=== PATIENT | male | born 1930 | race Caucasian/White ===

== ENCOUNTER 2017-11-13 07:12 | Inpatient (IN) | payer OTHER ==
[~2017-11-13] VITALS: Ht 167.6 cm; Wt 79.6 kg
[~2017-11-13 07:12] MED LIST: ALBUTEROL0.09 MG/A2 IH; AMLODIPINE BESYL5 M1 PO; ANTIVERT12.5 MG PO; ASPIR 8181 MG PO; ATORVASTATIN CA10 M1 PO; CLEOCIN HCL300 MG PO; CLOPIDOGREL75 M1 PO; CYCLOBENZAPRINE5 MG PO; HYDROCHLOROTHIA50 MG PO; LAC PO; LEVAQUIN500 MG PO; LEVAQUIN750 MG PO; LEVOTHYROXIN0.075 M2 PO; LEVOTHYROXIN0.088 M2 PO; LIPI20 PO; MAG PO; MELOXICAM7.5 M1 PO; METFORMIN HCL500 MG PO; TRE400 PO
[2017-11-13 07:23] VITALS: Ht 167.6 cm; Wt 79.6 kg
[2017-11-13 08:05] LABS: microscopic required? NO
[2017-11-13 08:13] LABS: BASOPHIL % 0.1 % (0-2); PLATELET COUNT 147 x10^3mcL (130-400); RED CELL DISTRIBUTION WIDTH 13.5 % (11.5-14.5)
[2017-11-13 08:13] LABS: UA SPECIFIC GRAVITY 1.015 (1.005-1.035); urine erythrocyte NEGATIVE (NEGATIVE)
[2017-11-13 08:36] LABS: CALCIUM 9.2 mg/dL (8.5-10.1); CARBON DIOXIDE 26.3 mmol/L (21-32); CHLORIDE SERUM 100 mmol/L (98-107); CREATININE SERUM 1.2 mg/dL (0.7-1.3); GLUCOSE SERUM 147 mg/dL (74-106); POTASSIUM SERUM 3.1 mmol/L (3.5-5.1); SODIUM SERUM 137 mmol/L (136-145)
[2017-11-13 08:44] LABS: CK-MB 1.3 ng/mL (0-3.6)
[2017-11-13 08:57] LABS: ALKALINE PHOSPHATASE 143 U/L (46-116); ALT/SGPT 64 U/L (16-63); AST/SGOT 53 U/L (15-37); BILIRUBIN TOTAL 1.3 mg/dL (0.20-1.00); TOTAL PROTEIN, SERUM 7.9 g/dL (6.4-8.2)
[2017-11-13] MEDS ORDERED: NOR10 PO (09:27)
[2017-11-13 10:35] LABS: MAGNESIUM 1.7 mg/dL (1.8-2.4); PHOSPHOROUS 2.7 mg/dL (2.5-4.9)
[2017-11-13 10:39] VITALS: BP 166/65
[2017-11-13 10:39] LABS: CHOLESTEROL/HDL RATIO 3.4
[2017-11-13] MEDS ORDERED: ZANTAC 150150 MG PO (11:06)
[2017-11-13 13:04] VITALS: BP 136/58
[2017-11-13 13:18] VITALS: BP 136/58
[2017-11-13 16:12] VITALS: BP 121/59
[2017-11-13 21:06] VITALS: BP 141/59
[2017-11-14 05:17] VITALS: BP 139/62
[2017-11-14 06:23] LABS: BASOPHIL % 0.1 % (0-2); RED CELL DISTRIBUTION WIDTH 13.8 % (11.5-14.5)
[2017-11-14 06:26] LABS: CALCIUM 8.6 mg/dL (8.5-10.1); CARBON DIOXIDE 25.1 mmol/L (21-32); CHLORIDE SERUM 101 mmol/L (98-107); CREATININE SERUM 1.3 mg/dL (0.7-1.3); GLUCOSE SERUM 140 mg/dL (74-106); MAGNESIUM 1.9 mg/dL (1.8-2.4); PHOSPHOROUS 2.1 mg/dL (2.5-4.9); SODIUM SERUM 137 mmol/L (136-145)
[2017-11-14 06:39] LABS: PLATELET COUNT 120 x10^3mcL (130-400)
[2017-11-14 09:08] VITALS: BP 134/62
[2017-11-14 13:38] VITALS: BP 140/59
[2017-11-14 16:48] VITALS: BP 128/64
[2017-11-14 20:43] VITALS: BP 108/50
[2017-11-15 05:45] VITALS: BP 115/65
[2017-11-15 07:00] LABS: CALCIUM 8.6 mg/dL (8.5-10.1); CARBON DIOXIDE 24.9 mmol/L (21-32); CHLORIDE SERUM 105 mmol/L (98-107); CREATININE SERUM 1.2 mg/dL (0.7-1.3); GLUCOSE SERUM 173 mg/dL (74-106); MAGNESIUM 2.2 mg/dL (1.8-2.4); PHOSPHOROUS 2.4 mg/dL (2.5-4.9); POTASSIUM SERUM 3.5 mmol/L (3.5-5.1); SODIUM SERUM 138 mmol/L (136-145)
[2017-11-15 07:31] LABS: BASOPHIL % 0.1 % (0-2); RED CELL DISTRIBUTION WIDTH 13.3 % (11.5-14.5)
[2017-11-15 07:45] LABS: PLATELET COUNT 127 x10^3mcL (130-400)
[2017-11-15 08:18] VITALS: BP 118/59
[2017-11-15 12:01] VITALS: BP 115/56
[2017-11-15 17:33] VITALS: BP 127/65
[2017-11-15 20:35] VITALS: BP 113/49
[2017-11-16] VITALS (7 sets, daily range): BP systolic 113–147; BP diastolic 50–73
[2017-11-16 07:11] LABS: BASOPHIL % 0 % (0-2); PLATELET COUNT 143 x10^3mcL (130-400); RED CELL DISTRIBUTION WIDTH 13.9 % (11.5-14.5)
[2017-11-16 07:13] LABS: CALCIUM 8.6 mg/dL (8.5-10.1); CARBON DIOXIDE 22.4 mmol/L (21-32); CHLORIDE SERUM 107 mmol/L (98-107); CREATININE SERUM 1.1 mg/dL (0.7-1.3); GLUCOSE SERUM 114 mg/dL (74-106); MAGNESIUM 2.1 mg/dL (1.8-2.4); PHOSPHOROUS 2.7 mg/dL (2.5-4.9); POTASSIUM SERUM 3.7 mmol/L (3.5-5.1); SODIUM SERUM 140 mmol/L (136-145)
[2017-11-17 05:24] VITALS: BP 142/66
[2017-11-17 07:30] LABS: PLATELET COUNT 139 x10^3mcL (130-400); RED CELL DISTRIBUTION WIDTH 13.1 % (11.5-14.5)
[2017-11-17 08:02] LABS: CALCIUM 8.4 mg/dL (8.5-10.1); CARBON DIOXIDE 24.7 mmol/L (21-32); CHLORIDE SERUM 107 mmol/L (98-107); CREATININE SERUM 1.1 mg/dL (0.7-1.3); GLUCOSE SERUM 93 mg/dL (74-106); MAGNESIUM 1.8 mg/dL (1.8-2.4); PHOSPHOROUS 2.7 mg/dL (2.5-4.9); POTASSIUM SERUM 3.9 mmol/L (3.5-5.1); SODIUM SERUM 141 mmol/L (136-145)
[2017-11-17 09:39] VITALS: BP 117/55
[2017-11-17 13:31] VITALS: BP 135/58
[2017-11-17 14:20] VITALS: BP 106/67
[2017-11-17 16:45] VITALS: BP 124/54
[2017-11-17] MEDS ORDERED: GENTAMICIN80 MG/101 IV (17:49)
[2017-11-17] MEDS ORDERED: [UNRECOGNIZED DRUG - OTHER] IV (17:50)
[2017-11-17 18:08] VITALS: BP 124/54
== END 2017-11-17 19:55 | DRG 871 ==
LOC: ED 07:12 → DU 09:41 → MU 11-17 17:43
PROVIDERS: Emergency Medicine; Family Medicine; ADMIT Family Medicine
DX: R78.81 Bacteremia (principal); N17.0 Acute kidney failure with tubular necrosis; D68.69 Other thrombophilia; J44.1 Chronic obstructive pulmonary disease with (acute) exacerbation; E87.6 Hypokalemia; B95.2 Enterococcus as the cause of diseases classified elsewhere; E11.65 Type 2 diabetes mellitus with hyperglycemia; E83.39 Other disorders of phosphorus metabolism; E83.42 Hypomagnesemia; R74.0 Nonspecific elevation of levels of transaminase and lactic acid dehydrogenase [LDH]; M19.90 Unspecified osteoarthritis, unspecified site; I25.10 Atherosclerotic heart disease of native coronary artery without angina pectoris; Z95.0 Presence of cardiac pacemaker; Z68.26 Body mass index [BMI] 26.0-26.9, adult; Z87.891 Personal history of nicotine dependence; Z85.51 Personal history of malignant neoplasm of bladder; Z95.5 Presence of coronary angioplasty implant and graft
CPT/HCPCS: 36600; 82962; 83880; 87804; 94150; 97110-GP; 97116-GP; 97530-GP; J0290; J1580; J2543; J2920; J3370; J3475; J3480; J7030; J7620; Q0092

== ENCOUNTER → 2018-05-12 | Outpatient (CLI) | payer OTHER ==
[~2018-05-12] MED LIST changes: +GENTAMICIN80 MG/101 IV; +NOR10 PO; +ZANTAC 150150 MG PO; +[UNRECOGNIZED DRUG - OTHER] IV
== END | disposition home or self-care (01) ==
LOC: RD 15:21
DX: R06.02 Shortness of breath (principal); Z95.0 Presence of cardiac pacemaker

== ENCOUNTER 2018-05-14 13:41 | Emergency (ER) | payer OTHER ==
[~2018-05-14] VITALS: Ht 167.6 cm; Wt 75.7 kg
[2018-05-14 13:47] VITALS: Ht 167.6 cm; Wt 75.7 kg
[2018-05-14 14:12] VITALS: BP 150/72
== END 2018-05-14 14:36 | disposition home or self-care (01) ==
LOC: ED 13:41
DX: I10 Essential (primary) hypertension (principal); E11.9 Type 2 diabetes mellitus without complications; E78.00 Pure hypercholesterolemia, unspecified; E03.9 Hypothyroidism, unspecified

== ENCOUNTER 2018-06-20 20:57 | Emergency (ER) | payer OTHER ==
[~2018-06-20] VITALS: Ht 172.7 cm; Wt 80.3 kg
[2018-06-20 21:03] VITALS: Ht 172.7 cm; Wt 80.3 kg
[2018-06-21 00:51] VITALS: BP 141/74
== END 2018-06-21 00:51 | disposition home or self-care (01) ==
LOC: ED 20:57
DX: S33.5XXA Sprain of ligaments of lumbar spine, initial encounter (principal); I10 Essential (primary) hypertension; E11.9 Type 2 diabetes mellitus without complications; Z85.51 Personal history of malignant neoplasm of bladder; E78.00 Pure hypercholesterolemia, unspecified; Z95.0 Presence of cardiac pacemaker; W01.10XA Fall on same level from slipping, tripping and stumbling with subsequent striking against unspecified object, initial encounter; Y93.89 Activity, other specified; Y92.89 Other specified places as the place of occurrence of the external cause; Y99.8 Other external cause status

== ENCOUNTER 2018-06-30 11:42 | Emergency (ER) | payer OTHER ==
[~2018-06-30] VITALS: Ht 165.1 cm; Wt 75.4 kg
[2018-06-30 12:36] LABS: BASOPHIL % 0.9 % (0-2)
[2018-06-30 12:45] LABS: PLATELET COUNT 165 x10^3mcL (130-400); RED CELL DISTRIBUTION WIDTH 24.1 % (11.5-14.5)
[2018-06-30 12:48] LABS: CALCIUM 8.2 mg/dL (8.5-10.1); CARBON DIOXIDE 25.9 mmol/L (21-32); CHLORIDE SERUM 107 mmol/L (98-107); CREATININE SERUM 1.2 mg/dL (0.7-1.3); GLUCOSE SERUM 119 mg/dL (74-106); POTASSIUM SERUM 4.2 mmol/L (3.5-5.1); SODIUM SERUM 141 mmol/L (136-145)
[2018-06-30 12:54] LABS: ALBUMIN 3.7 g/dL (3.4-5.0); ALKALINE PHOSPHATASE 140 U/L (46-116); ALT/SGPT 24 U/L (16-63); AST/SGOT 21 U/L (15-37); BILIRUBIN TOTAL 0.5 mg/dL (0.20-1.00); CHOLESTEROL 97 mg/dL (<200); HDL CHOLESTEROL 32 mg/dL (40-60)
[2018-06-30 14:51] VITALS: BP 137/70
[2018-07-01] MEDS ORDERED: NOR5 PO (18:56)
[2018-07-01] MEDS ORDERED: METFORMIN HYDR500 M1 PO (18:57)
[2018-07-01] MEDS ORDERED: PEPCID20 MG PO (18:57)
== END 2018-06-30 14:51 | disposition home or self-care (01) ==
LOC: ED 11:42
PROVIDERS: Emergency Medicine
DX: E86.0 Dehydration (principal); R55 Syncope and collapse; I10 Essential (primary) hypertension; E11.9 Type 2 diabetes mellitus without complications; E78.00 Pure hypercholesterolemia, unspecified
CPT/HCPCS: 83880; J7040; Q0092

== ENCOUNTER 2018-07-01 14:35 | Inpatient (IN) | payer OTHER ==
[~2018-07-01] VITALS: Ht 167.6 cm; Wt 71.9 kg
[2018-07-01 14:36] VITALS: Ht 167.6 cm; Wt 71.9 kg
[2018-07-01 16:35] LABS: CARBON DIOXIDE 27.5 mmol/L (21-32); CHLORIDE SERUM 103 mmol/L (98-107); CREATININE SERUM 1.1 mg/dL (0.7-1.3); GLUCOSE SERUM 129 mg/dL (74-106); POTASSIUM SERUM 3.5 mmol/L (3.5-5.1); SODIUM SERUM 136 mmol/L (136-145)
[2018-07-01 16:47] LABS: PLATELET COUNT 161 x10^3mcL (130-400)
[2018-07-01 16:48] LABS: LIPASE 176 IU/L (73-393); MAGNESIUM 1.7 mg/dL (1.8-2.4)
[2018-07-01 16:51] LABS: AMYLASE 159 U/L (25-115)
[2018-07-01 16:52] LABS: microscopic required? NO
[2018-07-01 17:07] LABS: RED CELL DISTRIBUTION WIDTH 26.2 % (11.5-14.5)
[2018-07-01 17:10] LABS: UA SPECIFIC GRAVITY <=1.005 (1.005-1.035); urine erythrocyte NEGATIVE (NEGATIVE)
[2018-07-01 17:22] LABS: SEGMENTED NEUTROPHILS 65 % (37-75)
[2018-07-01 17:23] LABS: BAND NEUTROPHIL 3 % (0-10); MONOCYTE 9 % (0-7); rbc morphology (normal/abnorm) ABNORMAL (NORMAL)
[2018-07-01 17:24] LABS: PLATELET MORPHOLOGY PLATELETS NORMAL; ovalocyte/elliptocyte 1+
[2018-07-01] MEDS ORDERED: NOR5 PO (18:56)
[2018-07-01] MEDS ORDERED: METFORMIN HYDR500 M1 PO (18:57)
[2018-07-01] MEDS ORDERED: PEPCID20 MG PO (18:57)
[2018-07-01 20:27] VITALS: BP 174/77
[2018-07-02 05:43] VITALS: BP 126/65
[2018-07-02 06:47] LABS: BASOPHIL % 0.9 % (0-2); PLATELET COUNT 158 x10^3mcL (130-400)
[2018-07-02 07:09] LABS: RED CELL DISTRIBUTION WIDTH 26.4 % (11.5-14.5)
[2018-07-02 07:10] LABS: rbc morphology (normal/abnorm) ABNORMAL (NORMAL)
[2018-07-02 08:33] LABS: CALCIUM 8.8 mg/dL (8.5-10.1); CARBON DIOXIDE 23.6 mmol/L (21-32); CHLORIDE SERUM 105 mmol/L (98-107); GLUCOSE SERUM 94 mg/dL (74-106); LACTIC DEHYDROGENASE (LDH) 207 U/L (100-190); MAGNESIUM 1.7 mg/dL (1.8-2.4); PHOSPHOROUS 2.9 mg/dL (2.5-4.9); POTASSIUM SERUM 3.6 mmol/L (3.5-5.1); SODIUM SERUM 132 mmol/L (136-145)
[2018-07-02 09:01] VITALS: BP 147/60
[2018-07-02 13:21] VITALS: BP 130/61
[2018-07-02 17:58] VITALS: BP 148/68
[2018-07-02 20:32] VITALS: BP 140/60
[2018-07-03] VITALS (7 sets, daily range): BP systolic 109–174; BP diastolic 58–72
[2018-07-03 07:10] LABS: CALCIUM 9.1 mg/dL (8.5-10.1); CARBON DIOXIDE 25.3 mmol/L (21-32); CHLORIDE SERUM 106 mmol/L (98-107); GLUCOSE SERUM 99 mg/dL (74-106); MAGNESIUM 1.9 mg/dL (1.8-2.4); PHOSPHOROUS 3.3 mg/dL (2.5-4.9); POTASSIUM SERUM 3.6 mmol/L (3.5-5.1); SODIUM SERUM 140 mmol/L (136-145)
[2018-07-03 07:22] LABS: BASOPHIL % 0.9 % (0-2); PLATELET COUNT 177 x10^3mcL (130-400)
[2018-07-03 07:26] LABS: RED CELL DISTRIBUTION WIDTH 26.2 % (11.5-14.5)
[2018-07-03 07:41] LABS: rbc morphology (normal/abnorm) ABNORMAL (NORMAL)
[2018-07-04 05:45] VITALS: BP 148/65
[2018-07-04 06:37] LABS: BASOPHIL % 0.6 % (0-2); PLATELET COUNT 170 x10^3mcL (130-400)
[2018-07-04 06:47] LABS: CARBON DIOXIDE 25.1 mmol/L (21-32); CHLORIDE SERUM 107 mmol/L (98-107); CREATININE SERUM 1.1 mg/dL (0.7-1.3); GLUCOSE SERUM 106 mg/dL (74-106); MAGNESIUM 1.9 mg/dL (1.8-2.4); PHOSPHOROUS 3.4 mg/dL (2.5-4.9); POTASSIUM SERUM 3.8 mmol/L (3.5-5.1); SODIUM SERUM 142 mmol/L (136-145)
[2018-07-04 06:48] LABS: RED CELL DISTRIBUTION WIDTH 26.2 % (11.5-14.5)
[2018-07-04 07:19] LABS: rbc morphology (normal/abnorm) ABNORMAL (NORMAL)
[2018-07-04 07:20] LABS: ovalocyte/elliptocyte 1+
[2018-07-04 09:12] VITALS: BP 134/54
[2018-07-04 12:56] VITALS: BP 150/66
[2018-07-04] MEDS ORDERED: LIPI20 PO (14:24)
[2018-07-04] MEDS ORDERED: NOR5 PO (14:26)
[2018-07-04] MEDS ORDERED: CLOPIDOGREL75 M1 PO (14:28)
[2018-07-04] MEDS ORDERED: HYD25 PO (14:33)
[2018-07-04 14:34] VITALS: BP 150/66
== END 2018-07-04 17:15 | disposition home or self-care (01) | DRG 73 ==
LOC: ED 14:35 → DU 18:02
PROVIDERS: Emergency Medicine; Family Medicine
DX: G90.8 Other disorders of autonomic nervous system (principal); K85.90 Acute pancreatitis without necrosis or infection, unspecified; D68.69 Other thrombophilia; E11.65 Type 2 diabetes mellitus with hyperglycemia; E11.51 Type 2 diabetes mellitus with diabetic peripheral angiopathy without gangrene; I10 Essential (primary) hypertension; I25.10 Atherosclerotic heart disease of native coronary artery without angina pectoris; E03.9 Hypothyroidism, unspecified; R42 Dizziness and giddiness; D64.9 Anemia, unspecified; Z95.0 Presence of cardiac pacemaker; Z68.29 Body mass index [BMI] 29.0-29.9, adult; Z87.891 Personal history of nicotine dependence; Z85.51 Personal history of malignant neoplasm of bladder; Z79.84 Long term (current) use of oral hypoglycemic drugs
CPT/HCPCS: 83880; G0480; J7030; J7040; J8597; Q0092

== ENCOUNTER 2020-07-31 16:31 | Inpatient (IN) | payer OTHER, SELFPAY ==
[~2020-07-31] VITALS: Ht 167.6 cm; Wt 67.6 kg
[~2020-07-31 16:31] MED LIST changes: +HYD25 PO; +METFORMIN HYDR500 M1 PO; +NOR5 PO; +PEPCID20 MG PO
[2020-07-31 16:33] VITALS: Ht 167.6 cm; Wt 67.6 kg
[2020-07-31 17:34] LABS: BASOPHIL % 0.3 % (0-2); PLATELET COUNT 135 x10^3mcL (130-400)
[2020-07-31 17:36] LABS: RED CELL DISTRIBUTION WIDTH 15.5 % (11.5-14.5)
--- NOTE | 2020-07-31 17:50 | NUR ---
OLIVIA NIECE OUTSIDE IN CAR [phone]
[2020-07-31 18:13] LABS: CALCIUM 8.5 mg/dL (8.5-10.1); CARBON DIOXIDE 26.3 mmol/L (21-32); CHLORIDE SERUM 95 mmol/L (98-107); CREATININE SERUM 1.4 mg/dL (0.7-1.3); GLUCOSE SERUM 113 mg/dL (74-106); POTASSIUM SERUM 3.7 mmol/L (3.5-5.1); SODIUM SERUM 130 mmol/L (136-145)
[2020-07-31 18:17] LABS: ALBUMIN 3.4 g/dL (3.4-5.0); ALKALINE PHOSPHATASE 128 U/L (46-116); ALT/SGPT 46 U/L (16-63); AST/SGOT 64 U/L (15-37); BILIRUBIN TOTAL 0.8 mg/dL (0.20-1.00); C REACTIVE PROTEIN 5.3 mg/dL (<=0.9); LACTIC DEHYDROGENASE (LDH) 245 U/L (100-190); TOTAL PROTEIN, SERUM 7.2 g/dL (6.4-8.2)
--- NOTE | 2020-07-31 18:30 | NUR ---
PT REMAINS ALERT, UNABLE TO MAINTAIN OXYGEN SATURATIONS ABOVE 92% WITHOUT BEING ON OXYGEN. PT REMAINS ON 2L N/C. PT CALM, COOPERATIVE, AWARE HE NEEDS TO GIVE A URINE SAMPLE, DISCUSSED HOW TO USE CALL LIGHT IF HE NEEDS ASSISTANCE.
--- NOTE | 2020-07-31 19:23 | NUR ---
RECEIVED REPORT FROM PAMELA HENSLEY TO ASSUME CARE OF PATIENT.
[2020-07-31 20:28] LABS: microscopic required? NO
--- NOTE | 2020-07-31 20:48 | NUR ---
PROVIDED UPDATE TO MARY KATE ROD. PT PROVIDED AUTHORIZATION TO GIVE STATUS TO MARY KATE.
--- NOTE | 2020-07-31 20:49 | NUR ---
PT IS A&OX4 WITH E/U BREATHS, NO ACD NOTED. PT'S BELONGINGS LIST COMPLETED.
[2020-07-31 21:11] LABS: UA SPECIFIC GRAVITY 1.015 (1.005-1.035); urine erythrocyte NEGATIVE (NEGATIVE)
[2020-07-31 21:30] VITALS: BP 121/51
--- NOTE | 2020-07-31 21:45 | NUR ---
MEDICATED PT PER MD ORDER, PENDING ROOM ASSIGNMENT FOR PT TO BE ADMITTED.
--- NOTE | 2020-07-31 22:45 | NUR ---
REPORT GIVEN TO ABHILASH HENSLEY TO ASSUME CARE OF PT. PT WILL BE ADMITTED TO 219B TELE
--- NOTE | 2020-07-31 23:16 | NUR ---
RECEIVED PT VIA [employer] FROM E/D, ACCOMPANIED BY RN AND TRANSPORTER. PT A/A/O X 4, CALM, COOPERATIVE TO CARE; PT IS NOOKSACK (L > R), WEARS GLASSES (NOT W/ PT), LITHUANIAN-SPEAKING ONLY; SHELLIE LOPEZ, BY BEDSIDE FOR TRANSLATION. ON TELE # 11, 100% PACED, HR 70, DENIES CHEST PAIN OR DISCOMFORT AT THIS TIME; PT UNABLE TO RECALL MAKER OR INSTALLATION DATE OF PM. KENDRICK LUNGS DIM, CHEST RISING EVENLY, 2LNC, 98%, C/O DRY COUGH AND SOB ON EXERTION. ABD SOFT, ROUND, NON-TENDER, NORMOACTIVE BOWEL SOUNDS X 4 QUADS, LAST BM 07/31/2020, DIARRHEA. AMBULATORY W/ CANE @ BASELINE (CANE @ BEDSIDE), GENERALIZED WEAKNESS, NO GAIT OR BALANCE IMPAIRMENT NOTED WHEN WALKING FROM GURNEY TO BED; NOTED MISSING DISTAL PHALANGES OF R INDEX / MIDDLE FINGERS. IV SITE LAC 20G, CDI. ORIENTED PT TO ROOM, BED CONTROLS, CALL LIGHT SYSTEM. SIDE RAILS UP X 2, BED IN LOW POSITION. PT ON CONTACT/DROPLET PRECAUTION D/T +COVID-19. WILL ENDORSE TO SHELLIE HUNG.
[2020-08-01] VITALS: BP 158/55
[2020-08-01 05:53] VITALS: BP 137/58
--- NOTE | 2020-08-01 06:59 | NUR ---
PT RESTED WELL THROUGOUT SHIFT. NO SOB ON O2 2L VIA NC. NO C/O PAIN. NO DISTRESS NOTED. IV TO LAC, SALINE LOCKED. AMBULATES WITH CANE AT BASELINE. CANE AT BEDSIDE. EXPLAINED CONVALESCENT PLASMA THERAPY TO PT AND PT'S NIECE (LAQUITA). SAFETY MEASURES MAINTAINED. CALL LIGHT WITHIN REACH. WILL ENDORSE CARE TO DAY SHIFT RN.
[2020-08-01 07:25] LABS: CALCIUM 8.5 mg/dL (8.5-10.1); CARBON DIOXIDE 24.9 mmol/L (21-32); CHLORIDE SERUM 100 mmol/L (98-107); CREATININE SERUM 1.1 mg/dL (0.7-1.3); GLUCOSE SERUM 148 mg/dL (74-106); POTASSIUM SERUM 4.1 mmol/L (3.5-5.1); SODIUM SERUM 136 mmol/L (136-145)
--- NOTE | 2020-08-01 07:40 | NUR ---
RECEIVED PATIENT RESTING IN BED, NO ACUTE DISTRESS NOTED. PATIENT AAOX4, DENIES HEADACHE. TELE MONITOR IN PLACE. PATIENT DENIES SOB, LUNG SOUNDS DIMINISHED TO BILATERAL BASES. DRY COUGH NOTED. PATIENT ON 2L NC, PULSE OX 96%. PATIENT DENIES PAIN. IV TO LAC SALINE LOCK, CDI&PATENT. ALL NEEDS MET AT THIS TIME, CALL LIGHT WITHIN REACH, BED IN LOW POSITION, WILL CONTINUE TO MONITOR.
[2020-08-01 08:38] VITALS: BP 127/55
[2020-08-01 08:48] LABS: PLATELET COUNT 120 x10^3mcL (130-400); RED CELL DISTRIBUTION WIDTH 15.8 % (11.5-14.5)
[2020-08-01 12:35] LABS: BAND NEUTROPHIL 1 % (0-10); MONOCYTE 6 % (0-7); SEGMENTED NEUTROPHILS 72 % (37-75); burr cell (echinocyte) 1+; rbc morphology (normal/abnorm) ABNORMAL (NORMAL)
--- NOTE | 2020-08-01 12:55 | NUR ---
UPDATED PATIENT MARY KATE COELHO REGARDING PATIENTS PLAN OF CARE, ALL QUESTIONS AND CONCERNS ADDRESSED AT THIS TIME.
[2020-08-01 13:29] VITALS: BP 121/54
--- NOTE | 2020-08-01 15:44 | NUR ---
PATIENT RECEIVED FIRST DOSE OF REMDESIVIR IV; PATIENT TOLERATING MEDICATION WELL, NO ADVERSE AFFECTS NOTED. PATIENT RECEIVED A COPY OF INFORMATION REGARDING THE MEDICATION REMDESIVIR. ALL QUESTIONS AND CONCERNS ADDRESSED, WILL CONTINUE TO MONITOR.
--- NOTE | 2020-08-01 18:00 | NUR ---
COVALESCENT PLASMA STARTED AT THIS TIME, VITAL SIGNS STABLE. VERRIFIED PLASMA WITH SHELLIE ROSADO. WILL MONITOR FOR THE NEXT 15MINS.
[2020-08-01 18:07] VITALS: BP 132/51
--- NOTE | 2020-08-01 18:15 | NUR ---
VITAL SIGNS STABLE AFTER 15MINS OF TRANFUSION. NO ADVERSE SIDE EFFECTS NOTED. INCREASED INFUSION RATE FROM 50ML/HR TO 200ML/HR. WILL CONTINUE TO MONITOR.
--- NOTE | 2020-08-01 19:10 | NUR ---
PATIENT IS STABLE, NO ACUTE CHANGES NOTED THROUGHOUT SHIFT. ENDORSED REPORT TO NIGHT RN.
[2020-08-01 19:30] VITALS: BP 137/51
--- NOTE | 2020-08-01 19:30 | NUR ---
RECEIVED REPORT FROM DAY SHIFT RN. PT RESTING IN BED. AA&O X4. NO SOB ON O2 1L VIA NC. NO C/O PAIN. NO DISTRESS NOTED. IN UNIT OF CONVALESCENT PLASMA TRANSFUSION COMPLETED. NO ADVERSE REACTION. IV TO LAC, PATENT AND INTACT. SAFETY MEASURES IN PLACE. BED IN LOWEST POSITION. SIDE RAILS UP X2. DEMONSTRATED HOW TO CALL FOR ASSISTANCE. CALL LIGHT WITHN EASY REACH. CANE AT BEDSIDE.
--- NOTE | 2020-08-02 01:11 | NUR ---
PT RESTING WITH EYES CLOSED. NO SOB ON O2 1L VIA NC. NO RESP DISTRESS NOTED. CALL LIGHT WITHIN REACH. CANE AT BEDSIDE.
[2020-08-02 05:39] VITALS: BP 137/50
--- NOTE | 2020-08-02 06:24 | NUR ---
PT RESTED IN LONG INTERVALS DURING SHIFT. NO SOB ON O2 1L VIA NC. BREATHING EVEN AND UNLABORED. NO RESP DISTRESS NOTED. NO C/O PAIN. NO ACUTE CHANGES. SAFETY MEASURES MAINTAINED. ALL NEEDS ATTENDED TO. CALL LIGHT WITHIN REACH. WILL ENDORSE CONTINUITY OF CARE TO ONCOMING RN.
--- NOTE | 2020-08-02 07:20 | NUR ---
RECEIVED BEDSIDE REPORT FROM NIGHT RN. PT IN BED RESTING. NO ACUTE DISTRESS. RR EVEN AND UNLABORED ON 1L NC. PT DENIES SOB/CHEST PAIN OR PRESSURE. PT ON TELE#11. DROPLET PRECAUTIONS. PT AMBULATORY WIHT CANE AT BEDSIDE. PT DENIES PAIN AT THIS TIME. CALL LIGHT WITHIN REACH. WILL CONTINUE TO MONITOR.
[2020-08-02 07:28] LABS: CALCIUM 8.4 mg/dL (8.5-10.1); CARBON DIOXIDE 23.7 mmol/L (21-32); CHLORIDE SERUM 102 mmol/L (98-107); CREATININE SERUM 1.2 mg/dL (0.7-1.3); GLUCOSE SERUM 198 mg/dL (74-106); POTASSIUM SERUM 3.7 mmol/L (3.5-5.1); SODIUM SERUM 136 mmol/L (136-145)
[2020-08-02 07:54] LABS: BILIRUBIN DIRECT 0.23 mg/dL (0.0-0.2); BILIRUBIN TOTAL 0.4 mg/dL (0.20-1.00); TOTAL PROTEIN, SERUM 6.4 g/dL (6.4-8.2)
[2020-08-02 08:02] LABS: ALBUMIN 2.9 g/dL (3.4-5.0)
[2020-08-02 08:28] VITALS: BP 145/64
[2020-08-02 08:40] LABS: PLATELET COUNT 106 x10^3mcL (130-400); RED CELL DISTRIBUTION WIDTH 15.4 % (11.5-14.5)
--- NOTE | 2020-08-02 11:00 | NUR ---
PT FAMILY (NIECE) UPDATED ON PT CARE, STATUS AND PLAN OF CARE.
[2020-08-02 12:04] VITALS: BP 146/61
[2020-08-02 13:00] LABS: BAND NEUTROPHIL 4 % (0-10); SEGMENTED NEUTROPHILS 74 % (37-75)
[2020-08-02 13:01] LABS: MONOCYTE 7 % (0-7); burr cell (echinocyte) 1+; rbc morphology (normal/abnorm) ABNORMAL (NORMAL); tear drop cell (dacryocyte) 1+
--- NOTE | 2020-08-02 13:50 | NUR ---
PT IN BED COMFORTABLY IN NO ACUTE DISTRESS. RR EVEN AND UNLABORED ON RA. PT DENIES SOB AT THIS TIME. BED RAILS UPX2. PT AMBULATORY WITH CANE AT BEDSIDE. CALL LIGHT WITHIN REACH. BED LOCKED IN LOWEST POSITION. WILL CONTINUE TO MONITOR.
[2020-08-02 16:04] VITALS: BP 138/79
--- NOTE | 2020-08-02 19:17 | NUR ---
ENDORSED CARE TO NIGHT RN
--- NOTE | 2020-08-02 19:50 | NUR ---
RECEIVED PT ALERT AND ORIENTED X4, BREATHING REGULAR AND UNLABORED ON ROOM AIR. PT DENIES ANY DISTRESS, SOB AT REST, CHEST PAIN, OR DIZZINESS. TELE 11, A-PACED HR 70 BPM, SAO2 94%. PT CURRENTLY LYING SUPINE, ABLE TO REPOSITION SELF IN BED, UTILIZED CANE FOR AMBULATION, ENCOURAGED TO UTILIZE CALL LIGHT AND WAIT FOR ASSISTANCE, PT VERBALIZED UNDERSTANDING. PIV TO LAV PATENT, NO SIGNS OF INFILTRATION, DRESSING CDI. DROPLET PRECUATIONS MAINTAINED FOR COBID POSITIVE STATUS, SAFETY PRECAUTIONS MAINTAINED. WILL CONTINUE TO MONITOR.
[2020-08-02 20:59] VITALS: BP 157/50
--- NOTE | 2020-08-03 00:30 | NUR ---
PT REMAINS ALERT AND ORIENTED X4, CURRENTLY RESTING, EASILY AROUSABLE. PT BREATHING REGULAR AND UNLABORED ON ROOM AIR SAO2 94%. PT PACED ON TELEMONITORING HR 70BPM. PT DENIES ANY SOB OR DISTRESS AT THIS TIME. CONTACT AND SAFETY PRECAUTIONS MAINTAINED. WILL CONTINUE TO MONITOR.
[2020-08-03 06:25] VITALS: BP 132/58
--- NOTE | 2020-08-03 06:57 | NUR ---
PT CURRENTLY SITTING UP IN BED, ABLE TO MAKE NEEDS KNOWN, DENIES ANY CHEST PAIN, SOB, OR DISTRESS AT THIS TIME. PT CURRENTLY SAO2 96%, BREATHING REGULAR AND UNLABORED ON ROOM AIR, HR 70BPM PACED ON TELE MONITORING. PIV PATENT, NO SIGNS OF INFITLRATION. PT COMPLIANT WITH SAFETY PRECAUTIONS AND DEMONSTRATED CALL LIGHT USE. DROPLET PRECUATIONS MAINTAINED. WILL ENDORSE CARE TO ONCOMING R/
[2020-08-03 07:00] LABS: PLATELET COUNT 158 x10^3mcL (130-400)
--- NOTE | 2020-08-03 07:05 | NUR ---
RECEIVED BEDSIDE REPORT FROM NIGHT RN. PT IN BED RESTING COMFORTABLY. RR EVEN AND UNLABORED ON RA. PT DENIES PAIN AT THIS TIME. PT ON TELE#11. DROPLET PRECAUTIONS. PT AMBULATORY WITH CANE AT BEDSIDE. BED RAILS UPX2. HOB ELEVATED. CALL LIGHT WITHIN REACH. BED LOCKED IN LOWEST POSITION. WILL CONTINUE TO MONITOR.
[2020-08-03 07:07] LABS: BASOPHIL % 0 % (0-2); RED CELL DISTRIBUTION WIDTH 15.1 % (11.5-14.5)
[2020-08-03 07:25] LABS: CALCIUM 8.9 mg/dL (8.5-10.1); CHLORIDE SERUM 102 mmol/L (98-107); CREATININE SERUM 1.2 mg/dL (0.7-1.3); GLUCOSE SERUM 162 mg/dL (74-106); POTASSIUM SERUM 3.8 mmol/L (3.5-5.1); SODIUM SERUM 138 mmol/L (136-145)
[2020-08-03 07:40] LABS: BILIRUBIN DIRECT 0.23 mg/dL (0.0-0.2)
[2020-08-03 07:50] LABS: ALBUMIN 3.1 g/dL (3.4-5.0)
[2020-08-03 07:55] VITALS: BP 113/60
[2020-08-03 08:07] LABS: BILIRUBIN TOTAL 0.49 mg/dL (0.20-1.00); TOTAL PROTEIN, SERUM 6.8 g/dL (6.4-8.2)
[2020-08-03 11:50] VITALS: BP 121/61
--- NOTE | 2020-08-03 12:20 | NUR ---
PT IN BED RESTING. NO ACUTE DISTESS. RR EVEN AND UNLABORED ON RA. PT DENIES SOB AT THIS TIME. HOB ELEVATED. BED RAILS UPX2. CALL LIGHT WITHIN REACH. WILL CONTINUE TO MONITOR.
[2020-08-03 15:59] VITALS: BP 114/54
--- NOTE | 2020-08-03 17:48 | NUR ---
PT IN BED RESTING. NO ACUTE DISTRESS. RR EVEN AND UNLABORED ON RA. PT DENIES SOB. IV SALINE LOCKED. HOB ELEVATED. BED LOCKED IN LOWEST POSITION. CALL LIGHT WITHIN REACH. WILL CONTINUE TO MONITOR.
--- NOTE | 2020-08-03 19:10 | NUR ---
ENDORSED CARE TO NIGHT RN.
--- NOTE | 2020-08-03 19:45 | NUR ---
PT IS ALERT AND ORIENTD X4, ESTONIAN SPEAKING, HARD OF HEARING, ABLE TO MAKE NEEDS KNOWN. PERSONAL BELONGINGS DROPPED OFF BY FAMILY DELIVERED TO PATIENT, INCLUDING BOOK, SHAVING CREAM AND RAZOR FROM HOME. PT CURRENTLY BREATHING REGULAR AND UNLABORED AT REST ON ROOM AIR. PT DENIES ANY SOB, CHEST PAIN, OR DISTRESS AT THIS TIME. TELE 11 PACED, HR 76BPM, AND SAO2 94%. PT VERBALIZES UNDERSTANDING OF CALL LIGHT USE AND SAFETY PRECAUTIONS, COMPLIANT WITH PLAN OF CARE. PIV PATENT, NO SIGNS OF INFILTRATION. DROPLET PRECAUTIONS IN PLACE. SAFETY PRECAUTIONS MAINTAINED, WILL CONTINUE TO MONITOR.
[2020-08-03 20:02] VITALS: BP 129/61
--- NOTE | 2020-08-03 23:55 | NUR ---
PT CURRENTLY RESTING, EASILY AROUSABLE. PT DENIES ANY SOB CHEST PAIN OR SOB AT THIS TIME. SAO2 94% ON ROOM AIR, BREATHING REGULAR AND UNLABORED. HR 71 BPM NSR ON TELE MONITORING. PT AMBULATORY AND ABLE TO MAKE NEEDS KNOWN. WILL CONTINUE TO MONITOR.
[2020-08-04 05:14] VITALS: BP 149/65
--- NOTE | 2020-08-04 06:26 | NUR ---
PT REMAINED STABLE AND RESTED COMFORTABLY OVERNIGHT, NO COMPLAINTS OF SOB, DISTRESS, OR CHEST PAIN. PT REMAINED ON ROOM AIR, CURRENT SAO2 94% ON ROOM AIR. PT AMBULATED TO BATHROOM WITH SLOW STEADY GAIT, AND VERBALIZED UNDERSTANDING OF PLAN OF CARE AND SAFETY PRECAUTIONS. LAV PIC PATENT, NO SIGNS OF INFILTRATION. HR 70BPM PACED, ON TELE MONITORING. WILL ENDORSE CARE TO ONCOMING RN.
--- NOTE | 2020-08-04 07:05 | NUR ---
RECIEVED BEDSIDE REPORT FROM NIGHT RN. PT IN BED RESTING WITH EYES CLOSED. EASILY AROUSABLE. RR EVEN AND UNALBORED ON RA. PT DENIES SOB AT THIS TIME. PT ON TELE#11. DROPLET PRECAUTIONS IN PLACE. PT DENIES PAIN AT THIS TIME. CALL LGIHT WITHIN REACH. BED LOCKED IN LOWEST POSITION. WILL CONTINUE TO MONITOR.
[2020-08-04 07:09] LABS: PLATELET COUNT 173 x10^3mcL (130-400)
[2020-08-04 07:56] LABS: BASOPHIL % 0 % (0-2); RED CELL DISTRIBUTION WIDTH 15.3 % (11.5-14.5)
[2020-08-04 08:01] LABS: BILIRUBIN DIRECT 0.21 mg/dL (0.0-0.2); BILIRUBIN TOTAL 0.5 mg/dL (0.20-1.00); TOTAL PROTEIN, SERUM 6.6 g/dL (6.4-8.2)
[2020-08-04 08:05] LABS: ALBUMIN 3.1 g/dL (3.4-5.0)
[2020-08-04 08:27] VITALS: BP 125/59
[2020-08-04 08:29] LABS: CALCIUM 8.8 mg/dL (8.5-10.1); CARBON DIOXIDE 25.5 mmol/L (21-32); CHLORIDE SERUM 102 mmol/L (98-107); CREATININE SERUM 1.1 mg/dL (0.7-1.3); GLUCOSE SERUM 134 mg/dL (74-106); POTASSIUM SERUM 3.6 mmol/L (3.5-5.1); SODIUM SERUM 138 mmol/L (136-145)
--- NOTE | 2020-08-04 09:45 | NUR ---
FAMILY UPDATED ON PT CONDITION AND PLAN OF CARE.
[2020-08-04 12:24] VITALS: BP 136/63
[2020-08-04 16:55] VITALS: BP 141/62
--- NOTE | 2020-08-04 17:49 | NUR ---
PT IN BED RESTING. NO ACUTE DISTRESS, PT DENIES PAIN AT THIS TIME. RR EVEN AND UNLABORED ON RA. PT DENIES SOB. BED RAILS UPX2. CALL LIGHT WITHIN REACH. WILL CONTINUE TO MONITOR.
--- NOTE | 2020-08-04 19:10 | NUR ---
RECEIVED PATIENT FROM DAY SHIFT NURSE. PATIENT IN NO ACUTE DISTRESS. AWAKE, ALERT AND ORIENTED X4. EVEN AND UNLABORED BREATHING NOTED ON ROOM AIR. DENIES ANY SOB AT THIS TIME. TELE #[address], 100% PACED. DENIES ANY PAIN AT THIS TIME. NO C/O CHEST PAIN OR CHEST PRESSURE. LAC IV WNL. NO ERYTHEMA/EDEMA AT IV SITE. BED IN LOWEST POSITION. CALL LIGHT WITHIN REACH. SIDE RAILS UP X2.
[2020-08-04 19:44] VITALS: BP 138/65
--- NOTE | 2020-08-05 01:10 | NUR ---
REMAINS IN NO ACUTE DISTRESS. SLEEPING AT THIS TIME. TELE #[address], HR 74. EVEN AND UNLABORED BREATHING NOTED, ON ROOM AIR. SPO2 95%. BED IN LOWES POSITION CALL LIGHT WITHIN REACH. SIDE RAILS UP X2.
[2020-08-05 05:16] VITALS: BP 138/64
--- NOTE | 2020-08-05 06:26 | NUR ---
PATIENT TOLERATED MEDICATIONS WELL. NO ACUTE DISTRESS AT THIS TIME. PATIENT WENT BACK TO SLEEP AFTER GIVEN HIS MORNING MEDICATIONS. WILL ENDORSE CARE TO ONCOMING SHIFT NURSE. WILL CONTINUE TO MONITOR.
--- NOTE | 2020-08-05 07:40 | NUR ---
RECEIVED PT IN BED A/A/OX4 DENIES BALDW[place]. [place] BILAT L>R. RESP EVEN AND UNLABORED WITH CLEAR BS BILAT. ON RA WITH RT PROTOCOL. PACED RHYTHM ON TELE IN 70S. DENIES ANY SOB/CP/PRESSURE AT THIS TIME. NO EDEMA NOTED WITH IV SL TO LAC PATENT. ABD SOFT, NONTENDER WITH ACTIVE BS X4. DENIES ANY N/V AT THIS TIME. VOIDING FREELY. AMBULATORY WITH SUPERVISION AND USE OF A CANE DROPLET PRECAUTIONS MAINTAINED FOR +CVD. CALL LIGHT IN REACH NEEDS ATTENDED TO AND ANTICIPATED.
[2020-08-05 08:03] LABS: ALKALINE PHOSPHATASE 121 U/L (46-116); ALT/SGPT 60 U/L (16-63); AST/SGOT 43 U/L (15-37); BILIRUBIN DIRECT 0.26 mg/dL (0.0-0.2); BILIRUBIN TOTAL 0.61 mg/dL (0.20-1.00); CALCIUM 8.8 mg/dL (8.5-10.1); CARBON DIOXIDE 23.7 mmol/L (21-32); CHLORIDE SERUM 102 mmol/L (98-107); CREATININE SERUM 1.2 mg/dL (0.7-1.3); GLUCOSE SERUM 118 mg/dL (74-106); POTASSIUM SERUM 3.6 mmol/L (3.5-5.1); SODIUM SERUM 137 mmol/L (136-145); TOTAL PROTEIN, SERUM 6.7 g/dL (6.4-8.2)
[2020-08-05 08:06] LABS: ALBUMIN 3.2 g/dL (3.4-5.0)
[2020-08-05 08:26] VITALS: BP 109/46
[2020-08-05 08:34] LABS: BASOPHIL % 0.3 % (0-2)
[2020-08-05 08:46] LABS: PLATELET COUNT 151 x10^3mcL (130-400)
--- NOTE | 2020-08-05 10:42 | NUR ---
RECEIVED A CALL FROM PT'E NILILIAN, UPDATED ON CONDITION. MADE AWARE PT STABLE WITH NO SIGNIFICANT CHANGES.
[2020-08-05 11:57] VITALS: BP 147/71
--- NOTE | 2020-08-05 14:19 | NUR ---
FAMILY CALLED REQUESTED AFTER MD ROUNDS. MADE AWARE PER DR. MOSES PLAN D/C HOME FOR TOMORROW. FAMILY VERBALIZED UNDERSTANDING. PT MADE AWARE. CALL LIGHT IN REACH NEEDS ATTENDED TO.
--- NOTE | 2020-08-05 18:38 | NUR ---
PT RESTING AT THIS TIME DENIES ANY DISCOMFORT. REMAINS ON RA SATING MID 90S. CALL LIGHT IN REACH NEEDS ATTENDED TO.
--- NOTE | 2020-08-05 19:35 | NUR ---
[facility] PT IS AAOX4, SERBIAN SPEAKING. DENIES HEADACHE/NAUSEA/DIZZINESS. PT IS TELE #11, 100% PACED, DENIES CHEST PAIN PULSES ARE EQUAL BILATERALLY, NO EDEMA NOTED. PT IS CTA, ON RA, DENIES SOB. NO ACUTE DISTRESS NOTED, EVEN AND UNLABORED BREATHING. ABDOMEN IS SOFT AND ROUND, NO PAIN UPON PALPATION. NORMOACTIVE X4 QUADRANTS, LAST BM 08/04. PT VOIDS FREELY, URINAL AT BEDISDE. PT HAS GENERALIZED WEAKNESS, AMBULATES AT BASELINE WITH CANE. SKIN IS DRY AND INTACT, NO LESIONS NOTED. PT HAS LAC IV, NO REDNESS OR SWELLING NOTED. PT IS CALM AND COOPERATIVE. BED IN LOWEST POSITION, CALL LIGHT WITHIN REACH. WILL CONTINUE TO MONITOR.
[2020-08-05 20:10] VITALS: BP 121/58
--- NOTE | 2020-08-06 01:10 | NUR ---
PATIENT RESTING IN BED WITH NO ACUTE DISTRESS. PT REMAINS ON RA, DENIES SOB. PT DENIES CHEST PAIN, 100% PACED. PATIENT CONTINUES TO BE AA0X4, ABLE TO COMMUNICATE NEEDS, NO LANGUAGE BARRIER AT THIS TIME. BED IN LOWEST POSITION, CALL LIGHT WITHIN REACH. WILL CONTINUE TO MONITOR
[2020-08-06 05:08] VITALS: BP 129/66
--- NOTE | 2020-08-06 05:17 | NUR ---
PT RESTED IN BED INTERMITTENTLY WITH EYES CLOSED. PT REMAINS ON RA, DENIES SOB. BED IN LOWEST POSITION, CALL LIGHT WITHIN REACH. WILL CONTINUE TO MONITOR UNTIL APPROPRIATE TO ENDORSE TO DAYSHIFT NURSE.
[2020-08-06 06:34] LABS: BASOPHIL % 0.1 % (0-2); PLATELET COUNT 191 x10^3mcL (130-400)
[2020-08-06 06:55] LABS: CALCIUM 8.9 mg/dL (8.5-10.1); CARBON DIOXIDE 27.4 mmol/L (21-32); CHLORIDE SERUM 102 mmol/L (98-107); CREATININE SERUM 1.3 mg/dL (0.7-1.3); GLUCOSE SERUM 137 mg/dL (74-106); POTASSIUM SERUM 3.9 mmol/L (3.5-5.1); SODIUM SERUM 136 mmol/L (136-145)
[2020-08-06 07:02] LABS: RED CELL DISTRIBUTION WIDTH 14.9 % (11.5-14.5)
--- NOTE | 2020-08-06 07:11 | NUR ---
ENDORSED CARE TO DAYSHIFT NURSE. ALL QUESTIONS/CONCERNS ADDRESSED.
--- NOTE | 2020-08-06 07:25 | NUR ---
RECEIVED PT IN BED A/A/OX4 DENIES BALDWIN. RESP EVEN AND UNLABORED WITH CLEAR BS BILAT. ON RA. DENIES ANY SOB/CP/PRESSURE. PACED RHYTHM ON TELE. NO EDEMA NOTED WITH IV SL TO LAC. ABD SOFT, NONTENDER WITH ACTIVE BS DENIES ANY N/V AT THIS TIME. VOIDING FREELY. AMBULATORY WITH SUPERVISION. USES A CANE. SKIN DRY AND FLACKY. DROPLET PRECAUTIONS MAINTAINED +CVD. POSS D/C TODAY. CALL LIGHT IN REACH NEEDS ATTENDED TO.
[2020-08-06 08:26] VITALS: BP 140/62
[2020-08-06 11:59] VITALS: BP 134/60
--- NOTE | 2020-08-06 14:05 | NUR ---
Initial Nutrition Assessment- NORMANBRYCE CIRILO RM#[id number] Dx: COVID-19, PNA, hypoxemia PMHx: CAD, hypothyroidism, AAA, PACER, GERD, hematuria, bladder CA PSHx: pacer, bladder sx Labs: glucose: 137H, BUN: 43H, albumin: 3.2L, ALK PH: 121H, AST: 43H, Meds: antivert, Decadron, D5%, Glucophage, Humulin R, hydrochlorothiazide, Lipitor, lovenox, Mobic, Norvasc, Pepcid, Phenergan, Plavix, Synthroid, Tylenol, ventolin Diet: 2 gm sodium PO Intakes: 86% since admit Ht: 66 inch (5 ft 6 inch) Wt: 67.6 kg (148.7 lbs) BMI: 24 IBW: 142 lbs (128-156 lbs) %IBW: 91-116% UBW: Age: 89 Food Allergies: NKFA Skin: intact, dry, flaky Josué: 20 Edema: no edema noted GI: ABD soft, round, non-tender, normoactive bowel sounds x 4 quads, last BM: 08/04/[address] Note (08/06/20): Per H&P- Hx of CAD, hypothyroidism, AAA, PACER, GERD, hematuria, bladder CA, tested positive for COVID 2 weeks ago, but cough continues to get worse. Upon arrival, PPO2 in the 50's, pt given ABX; per MD assessment- hypoxia, resp failure, PNA, COVID-19, R/O PE, CAD, HTN, hypothyroidism, JUAN CARLOS/CKD; pt in isolation due to COVID-19, nutrition assessment based on pt's medical record and nursing report. Problem with: N/V/D/C: none per pt's primary nurse Problems with: Chewing/Swallowing: none observed, per pt's nurse pt is missing a few teeth but it does not interfere with his chewing Current appetite: very good per nursing, pt eats 100% of all meals Recent wt changes: none %wt change: none Vitamin/Supplement: unknown Special Diet at Home: regular diet Physical activity: unknown Education:. No education provided at this time, f/u with diet education Estimated Nutritional Needs Based on CBW of 148.7 lbs/67.6 kg Energy: 6252-1071 kcal/d (30-35 kcal/kg for PNA, infection) Protein: 68-81 (1.0-1.2 g/kg for resp failure/infection, adjusted d/t CKD/JUAN CARLOS) Fluid: 5920-0261 mL/day (30-35 mL/kg) Nutrition Diagnosis 1) Increased nutrient needs related to infection as evidenced by COVID-19+, PNA DX Intervention/RDN Recommendation(s): 1) Continue current diet, as tolerated. 2) Recommend ONS if pt's PO intake meets less than 75% of estimated nutrient needs Monitor/Evaluate Goal: have pt meet at least 75% of estimated nutrient needs (met, ongoing) Monitor: PO intake, Labs, Skin integrity, Weights. F/U as days on 08/09-
--- NOTE | 2020-08-06 14:09 | NUR ---
Intervention/RDN Recommendation(s): 1) Continue current diet, as tolerated. 2) Recommend ONS if pt's PO intake meets less than 75% of estimated nutrient needs
--- NOTE | 2020-08-06 16:50 | NUR ---
SPOKE WITH DR. MOSES TO CHECK ON D/C PLAN PER MD D-DIMER REMAINS ELEVATED WILL POSTPONE D/C PLAN UNTIL TOMORROW IF LABS CONT TO TREND DOWN. PT AND FAMILY MADE AWARE. CONT TO MONITOR.
[2020-08-06 17:08] VITALS: BP 119/75
--- NOTE | 2020-08-06 18:20 | NUR ---
PT RESTING AT THIS TIME. DENIES ANY DISCOMFORT. REMOVED CONT PULSE OX SINCE PT HAS BEEN ON RA WITH SATS IN MID 90S OVER 48HRS. PT INSTRUCTED TO CALL IF SOB OR IN ANY DISCOMFORT. CALL LIGHT IN REACH NEEDS ATTENDED TO.
[2020-08-06 20:00] VITALS: BP 129/63
--- NOTE | 2020-08-07 03:40 | NUR ---
Received pt in bed, alert, watching TV Breathing comfortably on room air, spo2 92% No respiratory distress noted Denied CP or SOB No complaint at this time
[2020-08-07 06:34] VITALS: BP 148/81
[2020-08-07 06:44] LABS: BASOPHIL % 0 % (0-2); PLATELET COUNT 192 x10^3mcL (130-400); RED CELL DISTRIBUTION WIDTH 15.1 % (11.5-14.5)
[2020-08-07 06:48] LABS: CALCIUM 8.6 mg/dL (8.5-10.1); CARBON DIOXIDE 28.6 mmol/L (21-32); CHLORIDE SERUM 101 mmol/L (98-107); CREATININE SERUM 1.3 mg/dL (0.7-1.3); GLUCOSE SERUM 120 mg/dL (74-106); POTASSIUM SERUM 3.9 mmol/L (3.5-5.1); SODIUM SERUM 136 mmol/L (136-145)
--- NOTE | 2020-08-07 06:57 | NUR ---
Slept overnight, condition stable Doing well on room air, no distress noted All due care rendered Ambulated to restroom w/ cane, voiding Denied pain
--- NOTE | 2020-08-07 07:15 | NUR ---
RECEIVED FROM GUEST SERVICES DIRECTOR SHELLIE ZUNIGA, AOX4, NOT IN DISTRESS, TELE 11, 100% PACED, PALPABLE PULSES, NO EDEMA, CTA ON BLF,NO SOB, ON ROOM AIR, +BS, VOIDS FREELY, GENERALIZED WEAKNESS, SKIN DRY AND INTACT, NO PAIN AT THIS TIME, IV INTACT AND PATENT, LAC, NO REDNESS OR SWELLING, CALL LIGHT WITHIN REACH, BED AT LOWEST POSITION, SIDE RAILS UP.
[2020-08-07 08:42] VITALS: BP 144/66
--- NOTE | 2020-08-07 09:42 | NUR ---
MEDICATIONS GIVEN PER EMAR.
--- NOTE | 2020-08-07 11:51 | NUR ---
CBG 126. NO INSULIN REQUIRED
[2020-08-07 13:13] VITALS: BP 144/66
[2020-08-07 13:27] VITALS: BP 131/58
--- NOTE | 2020-08-07 14:02 | NUR ---
DISCHARGE INSTRUCTIONS GIVEN . INSTRUCTED TO TAKE PRESCRIPTION TO PREFERRED PHARMACY, TO FF UP WITH PCP AFTER DISCHARGE, TO TAKE MEDICATIONS PRESCRIBED, TO BRING BELONGINGS WITH PATIENT, TO ISOLATE FOR 14 DAYS, AND TO SEEK CONSULT FOR WORSENING OF SYMPTOMS. PATIENT UNDERSTOOD INSTRUCTIONS, SIGNED FORM AND PLACED ON CHART. CALLED GUANAKO DALYECE OF PATIENT, PER MALIKA, SHE WILL COME AT 1430
--- NOTE | 2020-08-07 14:43 | NUR ---
IV REMOVED. CATHETER INTACT, ID BAND REMOVED. TELE 11 [facility] DISCHARGED PER WHEELCHAIR ACCOMPANIED BY SELF.
== END 2020-08-07 14:58 | disposition home or self-care (01) | DRG 177 ==
LOC: ED 16:31 → DU 20:20
PROVIDERS: Emergency Medicine; Internal Medicine Infectious Disease; ADMIT Internal Medicine; ATTEND Internal Medicine
PROC: XW13325 Transfusion of Convalescent Plasma (Nonautologous) into Peripheral Vein, Percutaneous Approach, New Technology Group 5 (ICD-10-PCS; principal; 2020-08-01)
PROC: XW033E5 Introduction of Remdesivir Anti-infective into Peripheral Vein, Percutaneous Approach, New Technology Group 5 (ICD-10-PCS; 2020-08-01)
DX: U07.1 COVID-19 (principal); J96.01 Acute respiratory failure with hypoxia; J12.89 Other viral pneumonia; N17.9 Acute kidney failure, unspecified; E78.5 Hyperlipidemia, unspecified; I25.10 Atherosclerotic heart disease of native coronary artery without angina pectoris; E03.9 Hypothyroidism, unspecified; K21.9 Gastro-esophageal reflux disease without esophagitis; M19.90 Unspecified osteoarthritis, unspecified site; I71.4 Abdominal aortic aneurysm, without rupture; E78.00 Pure hypercholesterolemia, unspecified; I12.9 Hypertensive chronic kidney disease with stage 1 through stage 4 chronic kidney disease, or unspecified chronic kidney disease; N18.9 Chronic kidney disease, unspecified; E11.22 Type 2 diabetes mellitus with diabetic chronic kidney disease; D72.819 Decreased white blood cell count, unspecified; D69.6 Thrombocytopenia, unspecified; Z95.0 Presence of cardiac pacemaker; Z85.51 Personal history of malignant neoplasm of bladder; Z79.899 Other long term (current) drug therapy; Z79.891 Long term (current) use of opiate analgesic; Z79.84 Long term (current) use of oral hypoglycemic drugs
CPT/HCPCS: 36600; 82962; 83880; 85378; 87804; G0378; J0456; J0696; J1100; J1650; J3535; J7040; J7060; J8540; Q0092; Q9967; U0003-CS